=== PATIENT | male | born 1965 | race Caucasian/White ===

== ENCOUNTER 2024-04-27 09:59 | Day surgery (SDC) | payer BC ==
[2024-04-26 16:12] VITALS: BMI 25.0
[2024-04-27] MEDS ORDERED: Lidocaine 1% PF 5 ML VIAL ONE (12:11)
[2024-04-27] MEDS ORDERED: PROPOFOL 200 MG/20 ML VIAL ONE (12:11)
== END 2024-04-27 13:07 | disposition home or self-care (01) ==
LOC: SDC 09:59
PROVIDERS: ATTEND Internal Medicine Cardiovascular Disease
PROC: B246ZZ4 Ultrasonography of Right and Left Heart, Transesophageal (ICD-10-PCS; principal; 2024-04-27)
DX: I48.92 Unspecified atrial flutter (principal); I08.1 Rheumatic disorders of both mitral and tricuspid valves; Z79.899 Other long term (current) drug therapy
CPT/HCPCS: 92960; 93312; J2704

== ENCOUNTER 2024-07-04 05:56 | Day surgery (SDC) | payer BC ==
[2024-07-04] MEDS ORDERED: Protamine Sulfate 50 MG/5 ML VIAL ONE ×2 (06:48→11:21)
[2024-07-04] MEDS ORDERED: Heparin 10,000 UNITS/ 10 ML VIAL ONE (06:48)
[2024-07-04] MEDS ORDERED: Heparin 25,000 units/D5W 500 ML ONE (06:49)
[2024-07-04] MEDS ORDERED: Isoproterenol 0.2 MG/1 ML AMP ONE ×2 (07:07→09:17)
[2024-07-04] MEDS ORDERED: Midazolam HCl 2 mg/2 ml Vial ONE (08:01)
[2024-07-04] MEDS ORDERED: fentaNYL 50 mcg/mL 1 mL Vial ONE (08:01)
[2024-07-04] MEDS ORDERED: PHENYLEPHRINE-NS 100 MCG/ML 10 ML SYRINGE ONE (08:10)
[2024-07-04] MEDS ORDERED: PROPOFOL 200 MG/20 ML VIAL ONE (08:10)
[2024-07-04] MEDS ORDERED: Ondansetron PF 4 MG/2 ML Vial ONE (08:10)
[2024-07-04] MEDS ORDERED: Dexamethasone 20 MG/5 ML VIAL ONE (08:10)
[2024-07-04] MEDS ORDERED: Rocuronium Bromide 10 MG/ML (10ML VIAL) ONE (08:10)
[2024-07-04] MEDS ORDERED: Nitroglycerin 50 MG/250 ML BOT 250 ML ONE (10:33)
[2024-07-04] MEDS ORDERED: SUGAMMADEX SODIUM 200 MG/2 ML VIAL ONE (11:15)
== END 2024-07-04 16:17 | disposition home or self-care (01) ==
LOC: SDC 05:56
PROVIDERS: ATTEND Internal Medicine Cardiovascular Disease
PROC: 4A023FZ Measurement of Cardiac Rhythm, Percutaneous Approach (ICD-10-PCS; principal; 2024-07-04)
DX: I48.0 Paroxysmal atrial fibrillation (principal); I34.0 Nonrheumatic mitral (valve) insufficiency; I07.1 Rheumatic tricuspid insufficiency; I48.92 Unspecified atrial flutter; I50.30 Unspecified diastolic (congestive) heart failure; F17.220 Nicotine dependence, chewing tobacco, uncomplicated; Z79.01 Long term (current) use of anticoagulants; Z79.899 Other long term (current) drug therapy
CPT/HCPCS: 85347; 93005; 93010; 93623; 93655; 93656; 93657; C1730; C1732; C1733; C1759; C1760; C1766; C1769; C1894; J1100; J1644; J2250; J2405; J2704; J2720; J3010

== ENCOUNTER 2024-09-20 14:51 | Outpatient (CLI) | payer BC | END 2024-09-20 14:52 | disposition home or self-care (01) | LOC: BICCT 14:51 | PROVIDERS: ATTEND Specialist | DX: D37.030 Neoplasm of uncertain behavior of the parotid salivary glands (principal); K11.1 Hypertrophy of salivary gland; R93.89 Abnormal findings on diagnostic imaging of other specified body structures | CPT/HCPCS: 36415; 70492; 82565 ==